=== PATIENT | male | born 1995 | race Caucasian/White ===

== ENCOUNTER → 2018-06-23 | Outpatient (CLI) | payer OTHER | LOC: M RAD 10:17 | DX: M25.551 Pain in right hip (principal) | CPT/HCPCS: 73700 ==

== ENCOUNTER → 2018-08-21 | Outpatient (CLI) | payer OTHER ==
--- NOTE | 2018-08-21 15:20 | REP ---
Chest x-ray: Two views. History: Shortness of breath. . Comparison study: No comparison . Findings: The lungs are well inflated and free of infiltrate. The pleural angles are sharp. The heart size is normal. Pulmonary vasculature is not increased. No significant bony abnormality is seen. Impression: Negative chest x-ray. Electronically Signed by Kieran Carmichael MD 08/21/2018 03:11 P
--- NOTE | 2018-08-21 22:06 | ECGEPIP ---
Stationary ECG Study [facility] Test Date: 2018-08-21 Pat Name: AGUEDA GUERRERO Department: Room: - Gender: M Lab Director: : [id number] Requested By: JOSE Storey Order Number: [id number] Reading MD: Anatoliy Markham Measurements Intervals [place] Rate: 81 P: 61 PA: 181 QRS: 41 QRSD: 85 T: 29 QT: 363 QTc: 422 Interpretive Statements SINUS RHYTHM WITH SINUS ARRHYTHMIA Early repolarization. No prior ECG available for comparison at the time of interpretation. Electronically Signed On 08-21-2018 22:06:05 EST by Anatoliy Markham
--- NOTE | 2018-08-24 09:07 | ECHO ---
DATE OF STUDY: 08/21/2018 REFERRING PHYSICIAN: Dr. Chanda Moss INDICATION: Shortness of breath. HEIGHT: 70 inches. WEIGHT: pounds. 2-D MEASUREMENTS: Left atrium: 3.3 cm Ventricular septum: 0.97 cm Posterior wall: 1.00 cm Left ventricle diastole: 4.7 cm Aortic root: 2.8 cm Aortic annulus: 2.4 CM DOPPLER MEASUREMENTS: Aortic valve velocity: 113 cm/sec LVOT velocity: 76.1 cm/sec Very mild mitral regurgitation within normal limits Mitral E velocity: 57.2 cm/sec Mitral A velocity: 42.7 cm/sec Trace tricuspid regurgitation within normal limits Pulmonary artery systolic pressure 12 mmHg by pulmonary acceleration time method MITRAL ANNULAR TISSUE DOPPLER: E-prime septal: 13.1 cm/sec E-prime lateral: 11.2 cm/sec DESCRIPTION: The rhythm was sinus. Image quality was good. No pericardial effusion. This was a 2-D, M-mode, color flow Doppler and pulse wave Doppler examination and included mitral annular tissue Doppler. CONCLUSIONS: 1. Normal echocardiogram-Doppler. 2. Normal left ventricle internal dimensions and wall thickness. Normal regional LV wall motion and wall thickening. Normal LV systolic function. LVEF 60%. Normal LV diastolic function.
== END ==
LOC: M CARPUL 10:56
PROVIDERS: ATTEND Internal Medicine Medical Oncology
DX: R06.02 Shortness of breath (principal)